=== PATIENT | female | born 1965 | race Caucasian/White ===

== ENCOUNTER → 2016-11-16 | Day surgery (SDC) | payer BC ==
[~2016-11-16] VITALS: Ht 170.2 cm; Wt 104.8 kg
[~2016-11-16] MED LIST: AMBIEN5 MG PO; AMOXICILLIN500 MG PO; CELEXA40 M1 PO; HYDROXYZINE HCL25 M1 PO; NAPROSYN500 MG PO; REQUIP0.5 MG PO; ULTRAM50 M1 PO
[2016-11-16 10:54] VITALS: BP 97/67
== END | disposition home or self-care (01) | DRG 951 ==
LOC: ENDO 06:59
PROVIDERS: ATTEND Surgery
PROC: 0DJD8ZZ Inspection of Lower Intestinal Tract, Via Natural or Artificial Opening Endoscopic (ICD-10-PCS; principal; 2016-11-16)
DX: Z12.11 Encounter for screening for malignant neoplasm of colon (principal); F32.9 Major depressive disorder, single episode, unspecified; F17.290 Nicotine dependence, other tobacco product, uncomplicated

== ENCOUNTER 2016-12-16 19:00 | Emergency (ER) | payer BC ==
[~2016-12-16] VITALS: Ht 170.2 cm; Wt 105.6 kg
[2016-12-16] MEDS ORDERED: ZOLOFT50 MG PO (19:24)
[2016-12-16] MEDS ORDERED: SONATA10 MG PO (19:25)
[2016-12-16 19:31] VITALS: BP 102/63
[2016-12-16] MEDS ORDERED: PERCOCET 5/325M1 TAB PO (21:49)
== END 2016-12-16 22:08 | disposition home or self-care (01) | DRG 554 ==
LOC: ED 19:00
DX: M17.12 Unilateral primary osteoarthritis, left knee (principal); M25.562 Pain in left knee

== ENCOUNTER 2017-03-13 12:48 | Inpatient (IN) | payer BC ==
[~2017-03-13] VITALS: Ht 170.2 cm; Wt 94.8 kg
[~2017-03-13 12:48] MED LIST changes: +ADDERALL10 MG PO; +HYDROCO/APAP1 T13 PO; +PERCOCET 5/325M1 TAB PO; +RESTORIL15 M1 PO; +RESTORIL7.5 MG PO; +SONATA10 MG PO; +ZOLOFT50 MG PO
[2017-03-17 17:30] VITALS: BP 116/71
--- NOTE | 2017-03-17 17:30 | NUR ---
PT ARRIVED TO FLOOR VIA BED ACCOMPANIED BY OR STAFF. PT REPORTS MODERATE LEFT KNEE PAIN. REPORTING OF CONCERNS ENCOURAGED. PT ORIENTED TO ROOM AND EQUIPMENT. FALL PRECAUTIONS REINFORCED. PLAN OF CARE DISCUSSED. SCD TO RIGHT LEG. IS PROVIDED AND REVIEWED. PT STATES UNDERSTANDING. CALL LIGHT REVIEWED AND IN REACH.
[2017-03-17 17:45] VITALS: BP 113/72
[2017-03-17 18:15] VITALS: BP 111/69
[2017-03-17 18:45] VITALS: BP 112/70
--- NOTE | 2017-03-17 19:13 | NUR ---
BEDSIDE REPORT RECEIVED FROM MARY CASTRO. PT SITTING UP IN BED WITH ONE FAMILY MEMBER AT BEDSIDE. STATES THAT PERCOCET WERE SOMEWHAT EFFECTIVE. NONPHARMACEUTICAL INTERVENTIONS IN PLACE. PLAN OF CARE DISCUSSED. PT ENCOURAGED TO VERBALIZE CONCERNS. STATES UNDERSTANDING. SAFETY MEASURES IN PLACE. CALL LIGHT WITHIN REACH.
[2017-03-17 19:15] VITALS: BP 105/70
[2017-03-17 23:50] VITALS: BP 99/65
--- NOTE | 2017-03-18 00:39 | NUR ---
PT C/O MODERATE PAIN TO LEFT KNEE; ANALGESIC GIVEN. RESPIRATIONS EVEN AND UNLABORED ON ROOM AIR. TOLERATED ABT WELL; NO ADVERSE EFFECTS NOTED. SAFETY MEASURES IN PLACE. CALL LIGHT WITHIN REACH.
--- NOTE | 2017-03-18 04:10 | NUR ---
PT ASLEEP AT THIS TIME. NO SIGNS OF DISTRESS NOTED. RESPIRATIONS EVEN AND UNLBAORED ON ROOM AIR. NO CHANGES IN ASSESSMENT NOTED. ICE APPLIED TO LEFT KNEE; ELEVATED ON PILLOWS. SAFETY MEASURES IN PLACE. CALL LIGHT WITHIN REACH.
[2017-03-18 04:15] VITALS: BP 122/69
[2017-03-18 06:53] LABS: HEMATOCRIT 34.2 % (37.0-47.0); HEMOGLOBIN 11.1 g/dl (12.0-16.0)
--- NOTE | 2017-03-18 07:33 | NUR ---
REPORT RECEIVED FROM NIGHT NURSE, PT.IS UP BRUSHING TEETH, DENIES ANY ASSISTANCE NEEDED, PT. INSTRUCTED TO CALL NEEDS ARISE, WILL F/UP W/V/S AND ASSESSMENT
[2017-03-18 08:26] VITALS: BP 99/61
--- NOTE | 2017-03-18 08:45 | NUR ---
PT.IN WORKING W/PT FOR FIRST EVAL
--- NOTE | 2017-03-18 10:36 | NUR ---
PT.UP TO BSC, IV FLUIDS COMPLETE/FLUIDS D.C'D UPON COMPLETION AND TOLERATING FOOD/LIQUIDS WELL; PT.AMBULATED TO BSC SELF VERY WELL BY LIFTING SURGERY LEG W/STRONG FOOT AND THEN PIVOT METHOD; I JUST STOOD BY TO MONITOR; PT.USED SAME TECHNIQUE TO RETURN TO SIDE OF BED, SITTING ON BS RIGHT NOW W/FAMILY AT SIDE; EMPTIED BSC OF 400CC CLEAR YELLOW URINE
[2017-03-18] MEDS ORDERED: ASPIRIN EC325 MG PO (12:07)
[2017-03-18] MEDS ORDERED: PERCOCET 10/31 COMBO PO (12:07)
--- NOTE | 2017-03-18 13:50 | NUR ---
SWETHA'Meagan OFF THE FLOOR ACCOMPANIED BY STAFF AND FAMILY VIA WC IN GOOD CONDITION
== END 2017-03-18 13:54 | DRG 470 ==
LOC: MS2 03-17 10:15
PROVIDERS: ADMIT Orthopaedic Surgery; ATTEND Orthopaedic Surgery
PROC: 0SRD0J9 Replacement of Left Knee Joint with Synthetic Substitute, Cemented, Open Approach (ICD-10-PCS; principal; 2017-03-17)
DX: M17.12 Unilateral primary osteoarthritis, left knee (principal); F17.200 Nicotine dependence, unspecified, uncomplicated; F90.9 Attention-deficit hyperactivity disorder, unspecified type
CPT/HCPCS: J2270

== ENCOUNTER 2017-03-31 08:41 | Emergency (ER) | payer BC ==
[~2017-03-31] VITALS: Ht 170.2 cm; Wt 100.0 kg
[~2017-03-31 08:41] MED LIST changes: +ASPIRIN EC325 MG PO; +PERCOCET 10/31 COMBO PO
[2017-03-31] MEDS ORDERED: MIRALAX3350 N1 PO (09:48)
[2017-03-31] MEDS ORDERED: COLACE100 MG PO (09:48)
[2017-03-31 09:58] VITALS: BP 121/74
== END 2017-03-31 09:59 | disposition home or self-care (01) | DRG 392 ==
LOC: ED 08:41
DX: K59.00 Constipation, unspecified (principal); K62.89 Other specified diseases of anus and rectum

== ENCOUNTER 2017-07-17 11:45 | Emergency (ER) | payer BC ==
[~2017-07-17] VITALS: Ht 170.2 cm; Wt 94.0 kg
[~2017-07-17 11:45] MED LIST changes: +COLACE100 MG PO; +MIRALAX3350 N1 PO
[2017-07-17] MEDS ORDERED: PERCOCET 5/325M1 TAB PO (13:38)
[2017-07-17 13:43] VITALS: BP 114/76
== END 2017-07-17 13:48 | disposition home or self-care (01) | DRG 563 ==
LOC: ED 11:45
DX: S83.92XA Sprain of unspecified site of left knee, initial encounter (principal); F32.9 Major depressive disorder, single episode, unspecified; G25.81 Restless legs syndrome; F41.9 Anxiety disorder, unspecified; X50.1XXA Overexertion from prolonged static or awkward postures, initial encounter; Z96.652 Presence of left artificial knee joint; Z91.14 Patient's other noncompliance with medication regimen

== ENCOUNTER 2017-08-06 20:24 | Emergency (ER) | payer BC ==
[~2017-08-06] VITALS: Ht 170.2 cm; Wt 92.2 kg
[2017-08-06] MEDS ORDERED: TORADOL PO (21:24)
[2017-08-06 21:44] VITALS: BP 115/82
== END 2017-08-06 21:44 | disposition home or self-care (01) | DRG 563 ==
LOC: ED 20:24
DX: S93.401A Sprain of unspecified ligament of right ankle, initial encounter (principal); X50.1XXA Overexertion from prolonged static or awkward postures, initial encounter; Y93.59 Activity, other involving other sports and athletics played individually; Y92.828 Other wilderness area as the place of occurrence of the external cause